=== PATIENT | female | born 1975 ===

== ENCOUNTER 2021-09-10 06:17 | Day surgery (SDC) | payer OTHER ==
[~2021-09-10 06:17] MED LIST: TOPROL XL50 M1 PO
== END 2021-09-10 14:52 | disposition home or self-care (01) ==
LOC: CIR.AMB 06:17
PROVIDERS: ATTEND Obstetrics & Gynecology
DX: N84.0 Polyp of corpus uteri (principal); N93.9 Abnormal uterine and vaginal bleeding, unspecified; I10 Essential (primary) hypertension